=== PATIENT | female | born 1955 | race Two or more races ===

== ENCOUNTER → 2017-03-29 | Outpatient (CLI) | payer OTHER ==
--- NOTE | 2017-03-29 17:32 | RADRPT ---
PROCEDURE: XR Knees. CLINICAL INDICATION: Bilateral knee pain. TECHNIQUE: Total of six views. Frontal, oblique, and lateral views of both knees. COMPARISON: No prior study is available for comparison. FINDINGS: There is no fracture or dislocation. The soft tissues are normal. There are degenerative changes of the right knee with medial joint compartment narrowing, subarticul ar sclerosis, subarticular cysts, and deformity. There are degenerative changes of the left knee with medial joint compartment narrowing and subartic ular sclerosis. There is no radiopaque foreign body. IMPRESSION: 1. Severe degenerative changes of the right knee. 2. Moderate degenerative changes of the left knee. 3. Otherwise unremarkable study. RPTAT: QQ .Rafa Franz MD, MD Date Time Electronically viewed and signed by .Rafa Franz MD, on 03/29/2017 17:32 .R/
--- NOTE | 2017-03-30 06:33 | HKNOTE ---
DATE OF SERVICE: 03/29/2017 REFERRING PHYSICIAN: Dr. Wyatt, [address] [facility], [place] [address]. MAIN COMPLAINT: Pain in both knees, worse on the right side. HISTORY OF MAIN COMPLAINT: Patient is a 62-year-old female, who complains of pain in her right knee, which has been present for several years. The left knee pain started after a fall 1 year ago after falling on a slippery floor. She has undergone arthroscopic surgery to the left knee several years ago. This helped somewhat. She has also had 2 cortisone injections into each knee with fairly good pain relief except for the last injection in each case. The right knee pain is described as severe and is aggravated by walking, weightbearing and stair climbing. She takes ibuprofen 800 mg every 4 hours. She does get rest pain. She has no history of problems with her lower back. She gets numbness in the right leg. She uses a cane to get around. She can barely go from her bed to the kitchen and back to the bathroom. She gets pain every step that she takes. The knee swells, it is not unstable. Patient has had 2 injections into the left knee in the past and about 5 injections into the right knee in the past. The last injection gave her very minimal relief. Patient has had 2 injections into the left knee in the past and about 5 injections into the right knee in the past. The last injection gave her very minimal relief. Patient has had 2 injections into the left knee in the past and about 5 injections into the right knee in the past. The last injection gave her very minimal relief. PRIOR CORTISONE INTAKE: As above. ALCOHOL INTAKE: None. OTHER JOINT PROBLEMS: The patient gets pain in the left knee. BLOOD TESTS FOR ARTHRITIS: Patient has had blood tests for arthritis. She does not know the result. PRIOR INJURIES TO HIPS AND KNEES: The patient tripped and injured her right knee 8 years ago. WORK STATUS: The patient is retired. PAST MEDICAL HISTORY: Hypertension. PAST SURGICAL HISTORY: Gallstones removed 2 years ago, right knee surgery 2 years ago. DRUG ALLERGIES: Lisinopril. FAMILY HISTORY: Father at 84 of diabetes and a stroke. Mother at 84. SYSTEMS REVIEW: Excess urination, night urination, hypertension; otherwise, negative. HABITS: The patient does not smoke or drink alcoholic beverages. YOUTH MINISTER: Dr. Kaitlin Ricks, [address] [facility], [place] [address]. PHYSICAL EXAMINATION: GENERAL: The patient is a rather healthy-looking 62-year-old female, she comes in with her daughter. They both speak fairly good Yemeni, but the daughter translates for her any way. VITAL SIGNS: Height 5 foot 2. Weight 215 pounds. Blood pressure 140/65, temperature 98.3. GAIT: Patient's gait is quite markedly antalgic. She walks with a cane. HIPS: Both hips have a full range of motion without pain. KNEES: Examination of the right knee: Alignment is varus. Extension is full. Flexion is to 110 degrees. 6+ crepitus in the knee and under patella. Examination of the left knee: Alignment is varus. Extension is full. Flexion is to 120 degrees. There was 4+ crepitus in and the patella. Pain on forced flexion. IMAGING: Plain x-rays of the right knee obtained at the [facility] show [id number] medial compartment arthritis with intraosseous cysts in the distal femur, subchondral sclerosis, osteophyte formation. Marked pain on attempt to put the knee through range of motion. X-rays of the left knee obtained today were reviewed. These show similar changes as to the right knee but there is no total bone- on-bone loss of the lateral joint space. There are large cysts in the distal femur in the medial femoral condyle. DIAGNOSES: 1. Severe degenerative osteoarthritis of the right knee. 2. Cysts in the distal femur, which are unexplainable, that may compromise the structure of the knee replacement operation. 3. Imaging of the left knee obtained today also shows almost gjte-kg-qrma contact medially but there are no other secondary changes of osteoarthritis or rheumatoid arthritis. 4. Mild degenerative osteoarthritis of the left knee. 5. Hypertension. MANAGEMENT: Patient is advised that she will need to have a right knee replacement sometime in the near future. The surgery and some of the major complications were discussed with her through her daughter in a fair amount of detail. She was given a copy of my booklet on knee arthritis and knee replacement surgery. She will be called after I see the CAT of her distal femur, and she is anxious to proceed with knee replacement surgery as soon as authorization can be received. Dictated By: Bruno Kuhn MD /joaquim/sergio /Document#: [id number]
== END | disposition home or self-care (01) ==
LOC: HKI 14:24
DX: M17.0 Bilateral primary osteoarthritis of knee (principal); I10 Essential (primary) hypertension
CPT/HCPCS: 73562; Z7500; G0463

== ENCOUNTER → 2017-05-30 | Outpatient (CLI) | payer OTHER ==
--- NOTE | 2017-05-31 07:32 | HKNOTE ---
DATE OF SERVICE: 05/30/2017 CHIEF COMPLAINT: Right knee pain. HISTORY OF PRESENT ILLNESS: This is a 62-year-old female complaining of chronic right knee pain simon t has been worsening. She uses a cane for ambulation. She has pain with rest and walking. The georgina n is constant and rated a 10/10. There are no alleviating factors. It is aggravated by standing an d walking. She denies any history of trauma. She denies any back or groin pain. The pain is on th e inside and outside of her knee. She denies any locking or catching. GAIT: Antalgic gait with the use of assistive device. RIGHT KNEE EXAM: Neutral alignment. 0 to 110 degrees of flexion. Stable to varus valgus stress. Negative Mack's. Negative Jorge. Negative anterior drawer. Negative posterior drawer. MOTOR STRENGTH: 5/5 in hamstrings, quadriceps, gastroc soleus, peroneals. DIAGNOSTIC DATA: X-rays of right knee, 3 views: There is advanced degenerative changes of the righ t knee with bywj-xa-ffxo arthritic changes of the medial compartment. There are marginal osteophyte s and subchondral sclerosis. There is also cyst in the distal femur. CT right lower extremity: There are degenerative changes of the right knee. There are 2 large cyst s in the medial femoral and the medial distal femur. There are marginal osteophytes. IMPRESSION: A 62-year-old female with endstage osteoarthritis of the right knee who has failed nono perative management. PLAN: We will request authorization for right total knee arthroplasty. I discussed the risks assoc iated with surgery which include but are not limited to infection, deep venous thrombosis, pulmonary embolism, damage to neurovascular structures, loosening of the prosthesis, need for revisional surg bee, wear of prosthesis, heart attack, stroke, need for blood transfusion and even . The patie nt would like to proceed with surgery. She will require preoperative clearance. All questions were answered to her satisfaction. Dictated By: JUAN ELAINE/ISAAC Conf#: [id number] DID#: [id number]
== END | disposition home or self-care (01) ==
LOC: HKI 14:17
PROVIDERS: ATTEND Orthopaedic Surgery Adult Reconstructive Orthopaedic Surgery
DX: M17.11 Unilateral primary osteoarthritis, right knee (principal); M85.651 Other cyst of bone, right thigh
CPT/HCPCS: G0463

== ENCOUNTER → 2017-07-17 | Outpatient (CLI) | payer OTHER ==
[~2017-07-17] MED LIST: ACET1TAB40 PO; ASPI-664 PO; CALC600T24 PO; DICL75TA2 PO; HYDR25TA6 PO; OMEP20CA16 PO; TIZA4TAB PO
--- NOTE | 2017-07-17 15:54 | HKNOTE ---
DATE OF SERVICE: 07/17/2017 Ms. Munroe returned today for her preoperative evaluation. I discussed the risks associated with surgery, which include but are not limited to infection, deep venous thrombosis, pulmonary embolism , damage to nerves and blood vessels requiring repair and impairing function, need for revision surg bee, wear of prosthesis, loosening of prosthesis, heart attack, stroke, risks associated with anesth esia and even . All questions were answered to her satisfaction. Informed consent was obtaine d. She is scheduled for a right total knee arthroplasty at [facility] on 07/18/20 17. Dictated By: JUAN CH MD SS/NTS Conf#: [id number] DID#: [id number]
== END | disposition home or self-care (01) ==
LOC: HKI 09:24
PROVIDERS: ATTEND Orthopaedic Surgery Adult Reconstructive Orthopaedic Surgery
DX: Z01.818 Encounter for other preprocedural examination (principal)
CPT/HCPCS: G0463

== ENCOUNTER 2017-07-18 07:43 | Inpatient (IN) | payer OTHER ==
[2017-07-18] VITALS (23 sets, daily range): BP systolic 122–164; BP diastolic 52–71; PULSE 68–114; RESP 12–32; Ht 157.5 cm; Wt 98.6 kg
[~2017-07-18] VITALS: Ht 157.5 cm; Wt 98.6 kg
[~2017-07-18 07:43] MED LIST changes: -ACET1TAB40 PO; -ASPI-664 PO; -CALC600T24 PO; -DICL75TA2 PO; -HYDR25TA6 PO; -OMEP20CA16 PO; +SOD CHLORIDE 0.9% IV ONE; -TIZA4TAB PO; +TRANEXAMIC ACID IV ONE
[2017-07-18] MEDS ORDERED: DEXAMETHASONE 4 MG/ML 1 ML INJ IV ONE (08:00)
[2017-07-18] MEDS ORDERED: CELECOXIB 200 MG CAP PO ONE (08:00)
[2017-07-18] MEDS ORDERED: LANSOPRAZOLE 30 MG CAP PO ONE (08:00)
[2017-07-18] MEDS ORDERED: oxyCODONE (CR) 10 MG TAB [oxyCONTIN] PO ONE (08:00)
[2017-07-18] MEDS ORDERED: ONDANSETRON 4 MG INJ IV ONE (08:00)
[2017-07-18] MEDS ORDERED: OMEP20CA16 PO (08:03)
[2017-07-18] MEDS ORDERED: ACET1TAB40 PO (08:04)
[2017-07-18] MEDS ORDERED: CALC600T24 PO (08:05)
[2017-07-18] MEDS ORDERED: TIZA4TAB PO (08:06)
[2017-07-18] MEDS ORDERED: HYDR25TA6 PO (08:06)
[2017-07-18] MEDS ORDERED: ASPI-664 PO (08:07)
[2017-07-18] MEDS ORDERED: DICL75TA2 PO (08:07)
[2017-07-18] MEDS ORDERED: CEFAZOLIN 1 GM INJ ONE (08:35)
[2017-07-18] MEDS ORDERED: ROCURONIUM 50 MG INJ ONE (08:35)
[2017-07-18] MEDS ORDERED: NEOSTIGMINE 3 MG/3 ML SYRINGE ONE (08:35)
[2017-07-18] MEDS ORDERED: GLYCOPYRROLATE 0.4 MG INJ ONE (08:35)
[2017-07-18] MEDS ORDERED: PROPOFOL 100 ML ONE (08:36)
[2017-07-18] MEDS ORDERED: DEXAMETHASONE 4 MG/ML 1 ML INJ ONE (08:36)
[2017-07-18] MEDS ORDERED: FENTAnyl 50 MCG/ML VIAL ONE (08:36)
[2017-07-18] MEDS ORDERED: ONDANSETRON 4 MG INJ ONE (08:36)
[2017-07-18] MEDS ORDERED: ETOMIDATE 20 MG INJ ONE (08:36)
[2017-07-18] MEDS ORDERED: MIDAZOLAM 1 MG/ML 2 ML INJ ONE (08:36)
[2017-07-18] MEDS ORDERED: morphine SULFATE/PF (10 MG/10 ML) INJ ONE (08:36)
[2017-07-18] MEDS ORDERED: ACETAMINOPHEN 1000MG/100ML IV 100 ML IVPB SCH (09:00)
[2017-07-18] MEDS ORDERED: CEFAZOLIN SODIUM 2GM/D5W 50 X1 IVPB ONE (09:00)
[2017-07-18] MEDS ORDERED: SOD CHLORIDE 0.9% IV ONE (09:00)
[2017-07-18] MEDS ORDERED: TRANEXAMIC ACID IV ONE (09:00)
--- NOTE | 2017-07-18 10:11 | HPN ---
Date/Time of Note Date/Time of Note DATE: 07/18/17 TIME: 10:10 Interval H&P Admission Note Pt. seen H&P reviewed: No system changes CON TRINH PA-C Jul 18, 2017 10:10
[2017-07-18] MEDS ORDERED: BACITRACIN 50000 UNITS INJ ONE ×2 (11:30→11:43)
[2017-07-18] MEDS ORDERED: POLYMYXIN/BACITRACIN 1L IRRIG ONE (11:41)
[2017-07-18] MEDS ORDERED: POLYMYXIN B 500000 UNIT INJ ONE (11:41)
[2017-07-18] MEDS ORDERED: NALBUPHINE HCL (10 MG/1 ML) INJ IV PRN (12:00)
[2017-07-18] MEDS ORDERED: MIDAZOLAM 1 MG/ML 2 ML INJ IV PRN (12:00)
[2017-07-18] MEDS ORDERED: TRIMETHOBENZAMIDE 100 MG/ML VIAL IM PRN (12:00)
[2017-07-18] MEDS ORDERED: EPHEDrine SULFATE 50 MG/5 ML SYG IV PRN (12:00)
[2017-07-18] MEDS ORDERED: hydrALAzine 20 MG INJ IV PRN (12:00)
[2017-07-18] MEDS: traMADol 50 MG TAB PO SCH ×3 (12:00→23:30)
[2017-07-18] MEDS ORDERED: ALBUTEROL 0.083% (NEB) 2.5 MG/3 ML AMP HHN PRN (12:00)
[2017-07-18] MEDS ORDERED: FENTAnyl 50 MCG/ML VIAL IV PRN ×3 (12:00)
[2017-07-18] MEDS ORDERED: HYDROmorphONE (0.2 MG/ML) 10ML SYG IV PRN ×3 (12:00)
[2017-07-18] MEDS ORDERED: IPRATROPIUM (NEB) 0.5 MG/2.5 ML AMP HHN PRN (12:00)
[2017-07-18] MEDS ORDERED: ZOLPIDEM 5 MG TAB PO PRN (12:00)
[2017-07-18] MEDS ORDERED: morphine 2 MG INJ IV PRN (12:00)
[2017-07-18] MEDS ORDERED: NALOXONE (0.4 MG/ML) INJ IV PRN (12:00)
[2017-07-18] MEDS ORDERED: morphine 4 MG/ML VIAL IV PRN (12:00)
[2017-07-18] MEDS ORDERED: OXYCODONE/ACETAMINOPHEN (5/325) TAB PO PRN ×2 (12:00)
[2017-07-18] MEDS ORDERED: ONDANSETRON 4 MG INJ IV PRN (12:00)
[2017-07-18] MEDS ORDERED: LABETALOL HCL 20MG INJ IV PRN (12:00)
[2017-07-18] MEDS ORDERED: MEPERIDINE 25 MG INJ IV PRN (12:00)
[2017-07-18] MEDS ORDERED: DIPHENHYDRAMINE 50 MG INJ IV PRN ×2 (12:00)
[2017-07-18] MEDS ORDERED: ROPIVACAINE 0.5 % 30 ML VIAL ONE (12:14)
[2017-07-18] MEDS ORDERED: PHENYLephrine (100 MCG/ML) 5ML SYG ONE (12:53)
[2017-07-18] MEDS ORDERED: ROPIVACAINE 0.2% 60 ML, morphine SULFATE (PF) 4 MG, CLONIDINE 100 MCG, EPINEPHrine 0.3 MG INJ SCH ×7 (13:00)
--- NOTE | 2017-07-18 13:17 | SIPON ---
Date/Time of Note Date/Time of Note DATE: 07/18/17 TIME: 13:13 Operative Report Preoperative Diagnosis Right knee osteoarthritis Postoperative Diagnosis same Operation/Procedure Performed Right total knee arthroplasty Surgeon MD Daniel tutoring assistant Evin Durand Second assist: CON TRINH PA-C Anesthesia: spinal Estimated blood loss: 150 - 200 ml's Transfusion Required none Specimen resected bone Grafts/Implants Peña Nephew Melissa II Size 4 Tibia, Size 5N femoral component, 32mm patella, 9mm poly Complications none JUAN CH MD Jul 18, 2017 13:17
--- NOTE | 2017-07-18 13:33 | PDOCDIS ---
Discharge Instructions DIAGNOSIS Discharge Diagnosis Status post right total knee arthroplasty CONDITION Patient Condition: Good HOME CARE INSTRUCTIONS: Diet Instructions: Regular ACTIVITY: Activity Restrictions: Slowly Increase Activity Rest between Activity Avoid heavy lifting No Sexual Activity Do not Drive Do not operate Machinery Do not operate Power Tool Avoid Heavy Housework Keep Limb Elevated (2-3 pillows under the foot/ankle only) Weight Bearing (As tolerated with front wheeled walker) FOLLOW UP/APPOINTMENTS Follow-up Plan Follow-up at postoperative appointment provided to you at your preoperative visit. CON TRINH PA-C Jul 18, 2017 13:33
[2017-07-18] MEDS: CEFAZOLIN 1 GM/50 ML (PMX) 50 ML IVPB SCH ×2 (14:42→20:46)
[2017-07-18] MEDS: KETOROLAC 30 MG INJ IV SCH ×2 (14:51→20:46)
--- NOTE | 2017-07-18 14:57 | RADRPT ---
PROCEDURE: CR Right Knee CLINICAL INDICATION: Postop TECHNIQUE: AP and lateral views were submitted. COMPARISON: 03/29/2017 FINDINGS: Osseous Structures: Since the previous study, the patient has undergone a total right knee replaceme nt and the components appear well seated. The osseous elements are otherwise intact. Join Spaces: Intra-articular fluid in air is identified. Soft Tissues: Subcutaneous air is noted and a few small calcifications are seen in the ventral soft tissues. IMPRESSION: 1. There is now a well seated total right knee replacement. 2. Expected postoperative changes are noted Physician Meir Date Time Electronically viewed and signed by Physician Meir on 07/18/2017 14:57 /
[2017-07-18] MEDS: ONDANSETRON 4 MG INJ IV PRN (16:40)
[2017-07-18] MEDS ORDERED: ONDANSETRON 4 MG INJ IV STA (18:00)
[2017-07-18] MEDS: DOCUSATE SODIUM 100 MG CAP PO SCH (20:47)
[2017-07-19 02:57] VITALS: BP 164/74; RESP 18
[2017-07-19] MEDS: traMADol 50 MG TAB PO SCH ×4 (05:14→23:57)
[2017-07-19] MEDS: KETOROLAC 30 MG INJ IV SCH (05:18)
[2017-07-19] MEDS: CEFAZOLIN 1 GM/50 ML (PMX) 50 ML IVPB SCH (05:18)
[2017-07-19 05:46] LABS: BASOPHILS % 0.1 % (0.0-2.0); HEMATOCRIT 35.2 % (37.0-47.0); HEMOGLOBIN 12.2 g/dl (12.0-16.0); LYMPHOCYTES # 0.9 10^3/ul (0.8-2.9); MEAN CORPUSCULAR HEMOGLOBIN 30.7 pg (29.0-33.0); MEAN CORPUSCULAR HGB CONC 34.7 g/dl (32.0-37.0); MEAN CORPUSCULAR VOLUME 88.7 fl (82.0-101.0); MEAN PLATELET VOLUME 10.6 fl (7.4-10.4); MONOCYTE # 0.6 10^3/ul (0.3-0.9); MONOCYTES % 5.2 % (0.0-11.0); NEUTROPHIL # 9.8 10^3/ul (1.6-7.5); NEUTROPHILS % 86.2 % (39.0-77.0); PLATELET COUNT 231 10^3/UL (140-415); RED BLOOD COUNT 3.97 10^6/ul (4.20-5.40); RED CELL DISTRIBUTION WIDTH 11.4 % (11.5-14.5); WHITE BLOOD COUNT 11.4 10^3/ul (4.8-10.8)
[2017-07-19 06:17] LABS: CALCIUM 9.4 mg/dl (8.4-10.2); CREATININE 0.68 mg/dl (0.44-1.00); POTASSIUM 4.1 mmol/L (3.5-5.1)
--- NOTE | 2017-07-19 06:42 | OPR ---
Date/Time of Note Date/Time of Note DATE: 07/19/17 TIME: 06:37 Operative Report Procedure Date: Jul 18, 2017 Preoperative Diagnosis Right Knee Osteoarthritis Postoperative Diagnosis Same Operation/Procedure Performed 1. Right total knee arthroplasty, CPT code 75959. 2. Computer assisted surgical navigational procedure for total knee, CPT code 38220. Surgeon Juan Ch MD Commercial Teller Evin Gustafson Commercial Teller: CON TRINH PA-C Anesthesia Type: spinal Anesthesiologist: Conor Britt M.D. Tourniquet Time: 66 mins at 250mmHg Estimated Blood Loss: 150 - 200 ml's Transfusion none Specimen Bone Grafts/Implants Peña Nephew Melissa II Size 4 Tibia, Legion Size 5N femoral component, 32mm patella, 9mm posterior stabilized poly Complications none Pt Condition Post Procedure: stable Disposition: PACU Procedure Description TOURNIQUET TIME: 58 minutes at 250 mmHg. INDICATION FOR PROCEDURE: This is a 62-year-old female with endstage osteoarthritis of the right knee who had failed nonoperative management. Risks , benefits, alternatives of surgical intervention were discussed with the patient and informed consent was obtained. The risks of surgery include but are not limited to infection, deep venous thrombosis, pulmonary embolism, damage to neurovascular structures, wound healing problems, loosening of prosthesis, where of prosthesis, need for revision surgery, stiffness, need for blood transfusion, heart attack, stroke, risks associated with anesthesia and even . DETAILS OF PROCEDURE: The patient was met in the preoperative suite. The correct operative site was confirmed and marked. She was then brought into operating room. After induction of spinal anesthesia, she was placed in the supine position on the operating room table. A tourniquet was applied to the right upper thigh. The right lower extremity was prepped and draped in the usual sterile fashion. Before starting, a timeout was taken to identify the correct operative site and confirm that preoperative antibiotics consisting of 1 gram of IV Ancef along with 1 gram of tranexamic acid were administered. At this point, the right leg was then elevated and exsanguinated and the tourniquet was then insufflated for the above-noted time. A midline incision was made and a median parapatellar arthrotomy was then completed. The lateral patellar retinacular ligaments were released and the patella was retracted laterally. The sleeve of tissue was released from the proximal medial tibia. The cruciate and the menisci were excised along with the suprapatellar fat pad. The intramedullary hole was drilled into the femur and the femoral felisha was attached to the anterior cutting block set at 5 degrees of valgus. The block was then pinned into position and the distal femoral cut was then made, taking 9.5 mm of distal femur. All the osteophytes were removed. The femur was sized to a size 5. The 4-in-1 cutting block was pinned and the anterior posterior condylar cuts followed by the anterior and posterior chamfer cuts were then completed. At this point, the tibia was subluxed anteriorly. With the use of the navigation, [employer], the slope was set at 4 degrees with 0 degrees of varus and valgus, 2 mm was resected off the medial tibial plateau and 8 mm off the lateral tibial plateau. The gap cylinder checker was used and noted to have equal extension and flexion gaps. The tibia was then subluxed anteriorly and sized to a size 4. The tibial tray was then pinned and the keel was punched. Next, the femoral component was placed and the femoral box cut was then completed. At this point, the patella was sized to 22 mm and 8 mm was resected. The patella was sized to 32 mm. The holes for the patellar button were placed, the trial insert and components were placed using a 9 mm insert. The leg was noted to be in full extension and greater than 120 degrees of flexion. The knee was stable to varus valgus stress with excellent patellar tracking. Trial components were removed. All bony surfaces were pulse lavaged and dried. The appropriate size components were brought into the field and cemented with the removal of excess cement. The knee was held in extension until the cement had cured. At this point, the tourniquet was deflated. The tranexamic acid and antibiotics were redosed. Once the cement had cured the trial polyethylene was removed and the appropriate size 9 mm posterior stabilized polyethylene was placed. Hemostasis was obtained. Arthrotomy was closed using a #1 Vicryl in interrupted [id number]-kr-[id number] fashion followed by closure of subcutaneous tissue with 2-0 Vicryl and the skin with 3-0 Monocryl in subcuticular fashion. Steri- Strips and sterile dressing was applied followed by a cold pack and Zachary wrap. The patient was awakened and taken to postoperative care unit in stable condition. POSTOPERATIVE CARE: She will be weightbearing as tolerated. She will work with physical therapy. She will receive 2 additional doses of IV Ancef along with aspirin 325 mg p.o. b.i.d. for 6 weeks. Upon discharge, she will follow up at the [facility] within 2 weeks postoperatively. JUAN CH MD Jul 19, 2017 06:42
[2017-07-19 07:49] VITALS: BP 137/65; RESP 20
[2017-07-19] MEDS: ASPIRIN (EC) 325 MG TAB PO SCH ×2 (09:14→21:17)
[2017-07-19] MEDS: DOCUSATE SODIUM 100 MG CAP PO SCH ×2 (09:14→21:18)
--- NOTE | 2017-07-19 11:01 | PN ---
Date/Time of Note Date/Time of Note DATE: 07/19/17 TIME: 11:00 Assessment/Plan VTE Prophylaxis VTE Prophylaxis Intervention: ambulation, SCD's, other (Aspirin 325 mg) Lines/Catheters IV Catheter Type (from Nrsg): Peripheral IV Maldonado in Place (from Nrsg): Yes Assessment/Plan Assessment/Plan -Pain Meds as needed -Dressing is clean and intact. -OOB with PT -ASA/SCDs for DVT Prophylaxis -Continue monitoring with Internal Medicine -Patient Stable. Expected to be discharged home tomorrow. Subjective 24 Hr Interval Summary 62-year-old female postop day 1 status post right total knee arthroplasty. No physical therapy performed yesterday as patient had multiple episodes of vomiting. Vomiting stopped around 2 in the morning. Denies any GI pain, nausea or vomiting. Resting comfortably in bed now. Denies any chest pain/ tightness, shortness of breath or calf pain. Constitutional: no complaints Pain Control: well controlled Exam/Review of Systems Vital Signs Vitals Vital Signs Date Time Temp Pulse Resp B/P Pulse Ox O2 Delivery O2 Flow Rate FiO2 07/19/17 07:49 97.4 72 20 137/65 96 07/18/17 19:26 Room Air Intake and Output 07/18/17 07/18/17 07/19/17 15:00 23:00 07:00 Intake Total 3000 ml 200 ml 550 ml Output Total 800 ml 1100 ml Balance 2200 ml 200 ml -550 ml Exam Free Text/Dictation -No complications with dressing intact. -5/5 Tibialis Anterior, EHL Gastrocnemius/Soleus and Peroneals -Normal Sensation -Palpable DP/PT, Capillary Refill <2 secs -No Distal Edema -Negative Pablo Sign/No calf pain -Toes Freely Movable Constitutional: alert, oriented, well developed Results Result Diagram: 07/19/17 0439 07/19/17 0439 CON TRINH PA-C Jul 19, 2017 11:01
--- NOTE | 2017-07-19 14:10 | CONS ---
Date/Time of Note Date/Time of Note DATE: 07/19/17 TIME: 14:10 Assessment/Plan Assessment/Plan Chief Complaint/Hosp Course 62 yo F with PMH HTN and GERD is POD #1 after total right knee replacement Problems: Additional Assessment/Plan 1. Hypertension - Patient currently on Hctz at home and tolerates well - Will continue BP medications and monitor - Adjust as needed but BP currently stable 2. GERD - Continue on PPI 3. s/p R TKR - management per primary team Thanks you for allowing me to participate in the care of this patient. If any questions feel free to call. Consultation Date/Type/Reason Admit Date/Time Jul 18, 2017 at 07:43 Date of Consultation: Jul 19, 2017 Reason for Consultation medical management Hx of Present Illness 62 yo F with PMH hypertension and GERD was admitted following right total knee arthroplasty and is currently POD #1. Patient states knee pain is 8/10 and has appropriate pain control. Patient states she takes all medications as prescribed and denies any other medical issues. Denies chest pain, shortness of breath, nausea, vomiting, abdominal issues, neuropathy, or LOC. All 12 systems reviewed and pertinent positives as per HPI. all others reviewed and negative. Constitutional: No chills, No diaphoresis, No febrile Eyes: no complaints ENT: no complaints Respiratory: No cough, No shortness of breath, No sputum, No wheezing Cardiovascular: No chest pain, No lightheadedness, No palpitations Gastrointestinal: No constipation, No diarrhea, No nausea, No vomiting Genitourinary: No flank pain Musculoskeletal: bone/joint pain Skin: No pruritis, No rash Neurologic: no complaints Endocrine: no complaints Lymphatic: no complaints Psychological: nl mood/affect, no complaints Immunologic: no complaints Past Medical History Medical History: GERD, hypertension Past Surgical History Past Surgical Hx: cholecystectomy, other (arthroscopy right knee) Family History Significant Family History: no pertinent family hx Social History Alcohol Use: none Smoking Status: Never smoker Drug Use: none Exam/Review of Systems Vital Signs Vitals Vital Signs Date Time Temp Pulse Resp B/P Pulse Ox O2 Delivery O2 Flow Rate FiO2 07/19/17 07:49 97.4 72 20 137/65 96 07/18/17 19:26 Room Air Intake and Output 07/18/17 07/18/17 07/19/17 15:00 23:00 07:00 Intake Total 3000 ml 200 ml 550 ml Output Total 800 ml 1100 ml Balance 2200 ml 200 ml -550 ml Exam Constitutional: alert, oriented, well developed, No distress Psych: nl mood/affect Head: atraumatic, normocephalic Eyes: EOMI, PERRL, nl sclera Neck: non-tender, supple Respiratory: clear to auscultation, No crackles/rales, No diminished breath sounds, No wheezing Cardiovascular: regular rate and rhythm, No edema, No murmurs/extra sounds, No systolic murmur Gastrointestinal: bowel sounds, non-tender, soft, No distended, No rebound or guarding Genitourinary - Female: No CVA tenderness Musculoskeletal: joint tenderness Extremities: No cyanosis, No edema, No pitting pedal edema Neurological: GLOBE CHANGER II-XII intact, nl mental status, nl speech Skin: nl turgor Lymph: nl lymph nodes Results Result Diagram: 07/19/17 0439 07/19/17 0439 Results 24 hrs Laboratory Tests Test 07/19/17 04:39 White Blood Count 11.4 H Red Blood Count 3.97 L Hemoglobin 12.2 Hematocrit 35.2 L Mean Corpuscular Volume 88.7 Mean Corpuscular Hemoglobin 30.7 Mean Corpuscular Hemoglobin Concent 34.7 Red Cell Distribution Width 11.4 L Platelet Count 231 Mean Platelet Volume 10.6 H Neutrophils % 86.2 H Lymphocytes % 8.0 L Monocytes % 5.2 Eosinophils % 0.0 Basophils % 0.1 Nucleated Red Blood Cells % 0.0 Neutrophils # 9.8 H Lymphocytes # 0.9 Monocytes # 0.6 Eosinophils # 0.0 Basophils # 0.0 Nucleated Red Blood Cells # 0.0 Sodium Level 138 Potassium Level 4.1 Chloride Level 96 L Carbon Dioxide Level 33 H Anion Gap 13 Blood Urea Nitrogen 12 Creatinine 0.68 Glucose Level 144 Calcium Level 9.4 Medications Medications Medications reviewed Current Medications Tramadol HCl (Ultram) 50 mg Q6 PO Last administered on 07/19/17t 12:32; Admin Dose 50 MG; Start 07/18/17 at 12:00; Stop 07/21/17 at 11:59 Acetaminophen/ Hydrocodone Bitart (Stratton (5/325)) 1 tab Q4H PRN PO PAIN LEVEL 1 -3; Start 07/18/17 at 13:30 Oxycodone HCl (Roxicodone) 5 mg Q4H PRN PO PAIN LEVEL 1-3; Start 07/18/17 at 13:30 Ondansetron HCl (Zofran Inj) 4 mg Q6H PRN IV NAUSEA AND/OR VOMITING Last administered on 07/18/17 16:40; Admin Dose 4 MG; Start 07/18/17 at 13:30 Docusate Sodium (Colace) 100 mg BID PO Last administered on 07/19/17 09:14; Admin Dose 100 MG; Start 07/18/17 at 21:00 Aspirin (Ecotrin) 325 mg BID PO Last administered on 07/19/17 09:14; Admin Dose 325 MG; Start 07/19/17 at 09:00 Influenza Virus Vaccine (Fluzone) 0.5 ml ONCE ONCE IM* ; Start 07/20/17 at 09: 00; Stop 07/20/17 at 09:01 Procedures Procedures PROCEDURE: CR Right Knee CLINICAL INDICATION: Postop TECHNIQUE: AP and lateral views were submitted. COMPARISON: 03/29/2017 FINDINGS: Osseous Structures: Since the previous study, the patient has undergone a total right knee replacement and the components appear well seated. The osseous elements are otherwise intact. Join Spaces: Intra-articular fluid in air is identified. Soft Tissues: Subcutaneous air is noted and a few small calcifications are seen in the ventral soft tissues. IMPRESSION: 1. There is now a well seated total right knee replacement. 2. Expected postoperative changes are noted DELORIS MOSLEY MD Jul 19, 2017 14:10
[2017-07-19] MEDS: oxyCODONE 5 MG TAB PO PRN (14:47)
[2017-07-19] MEDS: CALCIUM CARBONATE 1.25 GM TAB PO SCH ×2 (14:50→23:15)
[2017-07-19 14:56] VITALS: BP 105/59; RESP 20
[2017-07-19 15:10] VITALS: BP 137/67; RESP 20
[2017-07-19] MEDS: HYDROCODONE/APAP (5/325) TAB PO PRN ×2 (16:41→21:18)
[2017-07-19 20:00] VITALS: BP 150/67; RESP 18
[2017-07-20 02:00] VITALS: BP 177/73; RESP 19
[2017-07-20 02:30] VITALS: BP 177/73; PULSE 81
[2017-07-20] MEDS ORDERED: HYDROCHLOROTHIAZIDE 25 MG TAB PO SCH ×2 (02:30→09:00)
[2017-07-20] MEDS: oxyCODONE 5 MG TAB PO PRN (02:34)
[2017-07-20 05:18] LABS: BASOPHILS % 0.2 % (0.0-2.0); EOSINOPHILS % 0.5 % (0.0-7.0); HEMATOCRIT 34.3 % (37.0-47.0); HEMOGLOBIN 11.6 g/dl (12.0-16.0); LYMPHOCYTES # 1.7 10^3/ul (0.8-2.9); LYMPHOCYTES % 19.8 % (15.0-51.0); MEAN CORPUSCULAR HEMOGLOBIN 30.4 pg (29.0-33.0); MEAN CORPUSCULAR HGB CONC 33.8 g/dl (32.0-37.0); MEAN CORPUSCULAR VOLUME 89.8 fl (82.0-101.0); MEAN PLATELET VOLUME 10.6 fl (7.4-10.4); MONOCYTES % 10.9 % (0.0-11.0); PLATELET COUNT 237 10^3/UL (140-415); RED BLOOD COUNT 3.82 10^6/ul (4.20-5.40); RED CELL DISTRIBUTION WIDTH 11.5 % (11.5-14.5); WHITE BLOOD COUNT 8.8 10^3/ul (4.8-10.8)
[2017-07-20 05:43] LABS: CREATININE 0.81 mg/dl (0.44-1.00); POTASSIUM 4.9 mmol/L (3.5-5.1)
[2017-07-20] MEDS: traMADol 50 MG TAB PO SCH ×3 (05:43→18:00)
[2017-07-20] MEDS ORDERED: PANTOPRAZOLE (EC) 40 MG TAB PO SCH (06:00)
[2017-07-20 07:46] VITALS: BP 159/70; PULSE 79; RESP 16
[2017-07-20 07:47] VITALS: BP 186/84
[2017-07-20] MEDS: HYDROCODONE/APAP (5/325) TAB PO PRN ×2 (07:57→18:28)
--- NOTE | 2017-07-20 07:59 | PN ---
Date/Time of Note Date/Time of Note DATE: 07/20/17 TIME: 07:57 Assessment/Plan VTE Prophylaxis VTE Prophylaxis Intervention: ambulation, SCD's, other (Aspirin 325 mg) Lines/Catheters IV Catheter Type (from Nrsg): Saline Lock Maldonado in Place (from Nrsg): No Assessment/Plan Assessment/Plan -Pain Meds as needed -ASA for DVT Prophylaxis x 6 weeks outpatient discussed. -Continue monitoring as outpatient on discharge -Follow-up at scheduled postop outpatient appointment or sooner if there is any issue. -Venous Doppler will be ordered today. If negative, patient may continue with discharge home with home health. -Patient Stable -Discharge to Home with home health Subjective 24 Hr Interval Summary 62-year-old female postop day 2 status post right total knee arthroplasty. Patient has initiated physical therapy and has been up and walking with physical therapy. Patient was having acute pain to the posterior knee. Patient denies pain being associated with surgery as she has had a similar pain on the contralateral side. Pain is sharp in nature. Denies any chest pain/ tightness or shortness of breath. Denies any acute overnight events. Exam/Review of Systems Vital Signs Vitals Vital Signs Date Time Temp Pulse Resp B/P Pulse Ox O2 Delivery O2 Flow Rate FiO2 07/20/17 07:47 186/84 07/20/17 07:46 98.0 79 16 92 07/18/17 19:26 Room Air Intake and Output 07/19/17 07/19/17 07/20/17 15:00 23:00 07:00 Intake Total 1250 ml 90 ml Balance 1250 ml 90 ml Exam Free Text/Dictation -No complications with dressing intact. Upon removal of dressing, wound is clean dry and intact. -5/5 Tibialis Anterior, EHL Gastrocnemius/Soleus and Peroneals -Normal Sensation -Palpable DP/PT, Capillary Refill <2 secs -No Distal Edema -Negative Pablo Sign/No calf pain -Toes Freely Movable Constitutional: alert, oriented, well developed Results Result Diagram: 07/20/17 0418 07/20/17 0418 CON TRINH PA-C Jul 20, 2017 07:59
[2017-07-20] MEDS ORDERED: INFLUENZA VIRUS VACCINE 0.5 ML (DISPENSING) IM* ONE (09:00)
[2017-07-20] MEDS: CALCIUM CARBONATE 1.25 GM TAB PO SCH (09:05)
[2017-07-20] MEDS: DOCUSATE SODIUM 100 MG CAP PO SCH (09:05)
[2017-07-20] MEDS: ASPIRIN (EC) 325 MG TAB PO SCH (09:05)
--- NOTE | 2017-07-20 12:08 | RADRPT ---
PROCEDURE: US right lower extremity venous CLINICAL INDICATION: Right total knee replacement TECHNIQUE: Multiple longitudinal and transverse images of the right lower extremity veins were obta ined with waller scale and color Doppler imaging. 2D grayscale measurements with compression, color D oppler flow, and augmentation was performed. The calf veins were interrogated as well. COMPARISON: None available FINDINGS: The right common femoral, femoral, and popliteal veins are patent and without evidence of filling de fects. All these veins have normal spectral wave forms, fill with color signal, are compressible, a nd have augmentation of blood flow with compression. The visualized right upper calf veins (posterior tibial and peroneal) are patent and without evidenc e of filling defects; these veins fill with color signal and are compressible. Sonographic evaluation of the right calf area where the patient complains of pain reveals no sonogra phic abnormality. IMPRESSION: 1. No evidence of deep vein thrombosis involving the right lower extremity RPTAT: TT Physician Loulou Date Time Electronically viewed and signed by Physician Loulou on 07/20/2017 12:07 MAYNOR/
--- NOTE | 2017-07-20 12:19 | CONS ---
Date/Time of Note Date/Time of Note DATE: 07/20/17 TIME: 12:19 Assessment/Plan Assessment/Plan Chief Complaint/Hosp Course 62 yo F with PMH HTN and GERD is POD #1 after total right knee replacement Problems: Additional Assessment/Plan 1. Hypertension- stable - Patient currently on Hctz at home and tolerates well - Will continue BP medications and monitor - Adjust as needed but BP currently stable 2. GERD - Continue on PPI 3. s/p R TKR - management per primary team 4. Right calf cramping - Doppler negative for DVT and pulses intact - electrolytes within normal limits - patient has had left calf cramping for years Thanks you for allowing me to participate in the care of this patient. If any questions feel free to call. Consultation Date/Type/Reason Admit Date/Time Jul 18, 2017 at 07:43 Initial Consult Date 07/19/17 Reason for Consultation medication management Exam/Review of Systems Vital Signs Vitals Vital Signs Date Time Temp Pulse Resp B/P Pulse Ox O2 Delivery O2 Flow Rate FiO2 07/20/17 07:47 186/84 07/20/17 07:46 98.0 79 16 92 07/18/17 19:26 Room Air Intake and Output 07/19/17 07/19/17 07/20/17 15:00 23:00 07:00 Intake Total 1250 ml 90 ml Balance 1250 ml 90 ml Exam Constitutional: alert, oriented, well developed, No distress Eyes: EOMI, PERRL, nl sclera Neck: non-tender, supple Respiratory: clear to auscultation, No crackles/rales, No diminished breath sounds, No wheezing Cardiovascular: regular rate and rhythm, No edema, No murmurs/extra sounds, No systolic murmur Gastrointestinal: bowel sounds, non-tender, soft, No distended, No rebound or guarding Extremities: No cyanosis, No edema, No pitting pedal edema. cramping of right calf Neurological: REPORTING CONSULTANT II-XII intact, nl mental status, nl speech Results Result Diagram: 07/20/17 0418 07/20/17 0418 Results 24 hrs Laboratory Tests Test 07/20/17 04:18 White Blood Count 8.8 # Red Blood Count 3.82 L Hemoglobin 11.6 L Hematocrit 34.3 L Mean Corpuscular Volume 89.8 Mean Corpuscular Hemoglobin 30.4 Mean Corpuscular Hemoglobin Concent 33.8 Red Cell Distribution Width 11.5 Platelet Count 237 Mean Platelet Volume 10.6 H Neutrophils % 68.0 Lymphocytes % 19.8 Monocytes % 10.9 Eosinophils % 0.5 Basophils % 0.2 Nucleated Red Blood Cells % 0.0 Neutrophils # 6.0 Lymphocytes # 1.7 Monocytes # 1.0 H Eosinophils # 0.0 Basophils # 0.0 Nucleated Red Blood Cells # 0.0 Sodium Level 139 Potassium Level 4.9 Chloride Level 99 Carbon Dioxide Level 36 H Anion Gap 9 Blood Urea Nitrogen 16 Creatinine 0.81 Glucose Level 141 Calcium Level 9.0 Medications Medications Current Medications Tramadol HCl (Ultram) 50 mg Q6 PO Last administered on 07/20/17 11:54; Admin Dose 50 MG; Start 07/18/17 at 12:00; Stop 07/21/17 at 11:59 Acetaminophen/ Hydrocodone Bitart ([place] (5/325)) 1 tab Q4H PRN PO PAIN LEVEL 1 -3 Last administered on 07/20/17 07:57; Admin Dose 1 TAB; Start 07/18/17 at 13:30 Oxycodone HCl (Roxicodone) 5 mg Q4H PRN PO PAIN LEVEL 1-3 Last administered on 07/20/17 02:34; Admin Dose 5 MG; Start 07/18/17 at 13:30 Ondansetron HCl (Zofran Inj) 4 mg Q6H PRN IV NAUSEA AND/OR VOMITING Last administered on 07/18/17 16:40; Admin Dose 4 MG; Start 07/18/17 at 13:30 Docusate Sodium (Colace) 100 mg BID PO Last administered on 07/20/17 09:05; Admin Dose 100 MG; Start 07/18/17 at 21:00 Aspirin (Ecotrin) 325 mg BID PO Last administered on 07/20/17 09:05; Admin Dose 325 MG; Start 07/19/17 at 09:00 Calcium Carbonate (Oyster Shell Calcium) 1.25 gm BID PO Last administered on 09:05; Admin Dose 1.25 GM; Start 07/19/17 at 14:45 Pantoprazole (Protonix Tab) 40 mg DAILY@06 PO Last administered on 07/20/17 05:43; Admin Dose 40 MG; Start 07/20/17 at 06:00 Hydrochlorothiazide (Hydrochlorothiazide) 25 mg DAILY PO Last administered on 07/20/17t 02:34; Admin Dose 25 MG; Start 07/20/17 at 02:30 DELORIS MOSLEY MD Jul 20, 2017 12:19
[2017-07-20] MEDS ORDERED: POLYETHYLENE GLYCOL 17 GM PACKET PO SCH (12:30)
[2017-07-20] MEDS ORDERED: BISACODYL 10 MG SUPP PR ONE (15:00)
[2017-07-20] MEDS: ONDANSETRON 4 MG INJ IV PRN (15:17)
[2017-07-20 15:24] VITALS: BP 140/66; PULSE 89; RESP 20
[2017-07-20 15:32] VITALS: BP 142/79; RESP 19
--- NOTE | 2017-07-21 07:26 | DS ---
Date/Time of Note Date/Time of Note DATE: 07/21/17 TIME: 07:25 Discharge Summary Admission/Discharge Info Admit Date/Time Jul 18, 2017 at 07:43 Discharge Date/Time Jul 20, 2017 at 19:20 Discharge Diagnosis Status post right total knee arthroplasty Patient Condition: Good Hospital Course On the day of admission, the patient underwent right total knee arthroplasty Intraoperative complications: None Postoperative complications: None The patient was given prophylactic antibiotics and anticoagulants. On the day of surgery and first postoperative day patient was started on gait training and was taught usual restrictions following knee replacement On postoperative day 1 dressing was clean dry and intact. No complications were observed. On the day of discharge, the wound was clean and healing well; there was no sign of infection. Wound care instructions were discussed with the patient. Discharge Temperature: 98 Discharge White Blood Cell Count: 8.8 Discharge Hemoglobin: 11.6 The patient was discharged home with home health. Arrangements were made for visiting nurses and home health/physical therapy. The patient will be seen in office at scheduled postoperative evaluation date given on their preoperative exam. Should patient complain of any problems prior to scheduled postoperative evaluation date, they may call into outpatient clinic to determine if they need to be scheduled at sooner appointment to be seen immediately if needed. Discharge medications: As per medication reconciliation form Diet: Same as preadmission diet. This is Con Molina PA-C dictating discharge summary for Dr. Juan Olivas. Home Meds Reported Medications Diclofenac Sodium* (Diclofenac Sodium*) 75 Mg Tablet., 75 MG PO BID, #60 TAB 07/18/17 Tizanidine Hcl* (Tizanidine Hcl*) 4 Mg Tablet, 4 MG PO BID Y for SPASTICITY, TAB 07/18/17 Hydrochlorothiazide* (Hydrochlorothiazide*) 25 Mg Tab, 25 MG PO DAILY, #30 TAB 07/18/17 Calcium Carbonate* (Calcium Carbonate*) 600 MG Ca Tab, 1296 MG PO BID, TAB 07/18/17 Acetaminophen with Codeine (Acetaminophen-Cod #3 Tablet) 1 Each Tablet, 1-2 TAB PO Q6H Y for PAIN, #7 TAB 07/18/17 Omeprazole* (Omeprazole*) 20 Mg Capsule., 20 MG PO DAILY, #30 CAP 07/18/17 Discontinued Reported Medications Aspirin (Low Dose Aspirin) 81 Mg Tablet., 81 MG PO DAILY, #30 TAB 07/18/17 Follow-up Plan Follow-up at postoperative appointment provided to you at your preoperative visit. Primary Care Provider Not On Staff Doctor CON TRINH PA-C Jul 21, 2017 07:26
== END 2017-07-20 19:20 | disposition home health service (06) | DRG 470 ==
LOC: REC 07:43 → MS1 17:25
PROVIDERS: ADMIT Orthopaedic Surgery Adult Reconstructive Orthopaedic Surgery; ATTEND Orthopaedic Surgery Adult Reconstructive Orthopaedic Surgery
PROC: 0SRC0J9 Replacement of Right Knee Joint with Synthetic Substitute, Cemented, Open Approach (ICD-10-PCS; principal; 2017-07-18 13:00)
DX: M17.11 Unilateral primary osteoarthritis, right knee (principal); I10 Essential (primary) hypertension; K21.9 Gastro-esophageal reflux disease without esophagitis; R25.2 Cramp and spasm
CPT/HCPCS: 73560; 80048; 83735; 85025; 86850; 86900; 86901; 86920; 87086; 88304; 88311; 90686; 93971; 97110; 97116; 97163; 97530; J0131; J0171; J0690; J0697; J0735; J1100; J1885; J2250; J2274; J2370; J2405; J2710; J2795; J3010

== ENCOUNTER → 2017-07-31 | Outpatient (CLI) | payer OTHER ==
[~2017-07-31] MED LIST changes: +ACET1TAB40 PO; +CALC600T24 PO; +DICL75TA2 PO; +HYDR25TA6 PO; +OMEP20CA16 PO; -SOD CHLORIDE 0.9% IV ONE; +TIZA4TAB PO; -TRANEXAMIC ACID IV ONE
--- NOTE | 2017-07-31 10:39 | PN ---
Date/Time of Note Date/Time of Note DATE: 07/31/17 TIME: 10:34 Outpatient Progress Note Chief Complaint 2 weeks status post right total knee replacement. HPI 62-year-old female presents today for 2 week postop status post right total knee arthroplasty on 07/18/2017. Patient states that her pain has significantly improved status post surgery. Patient has recently initiated outpatient physical therapy. She is using front wheeled walker for assisted ambulation. Patient does state that at night she gets acute sharp spasms distal to the right knee that are self-limiting. Denies any calf pain. Denies any chest pain/tightness or shortness of breath. Review of Systems Const: No Fever, no chills, no Fatigue, normal appetite, no diaphoresis. Resp: No SOB, no wheezing, no chest pain. CV: No chest pain, no palpitaions, no KONG. Physical Exam Blood pressure is 192/76, temperature is 97.7, pulse is 83, respiratory rate is 12, height is 5 foot 2 inches, weight is 210 pounds General Appearance: well-developed, well-nourished, in no acute distress. Right knee: Wound is clean dry and intact and healing well.Gait is abnormal with slight limp. Patient is able to walk independently but feels more confident walking with front wheeled walker. About 5 lag from full extension. Patient is able to flex up to 95 today on exam. No tenderness to palpation. Normal sensory examination to light touch. 4+/5 strength on resistance. Imaging: X-ray to the right knee on 07/31/2017 showing no signs of lucency. Femoral and tibial prosthesis intact and well aligned. Slight medial angulation of patella polyethylene prosthesis.No signs of any acute injury. Allergies Coded Allergies: lisinopril (Unverified Allergy, Unknown, SWELLING RASH, 07/18/17) Assessment/Plan Problems: (1) Status post right knee replacement * Continue with aspirin 325 mg until 6 weeks status post surgery. * Continue with outpatient physical therapy. At home exercises also discussed with patient today. * Patient was advised to gradually wean off of front wheeled walker to the point where she can ambulate independently. * Pain medication as needed especially 30 minutes prior to physical therapy so that she can apply full effort while performing sessions. * Follow-up 6 weeks status post surgery for repeat evaluation. Dr. Sheibani-Rad was present for examination today. Medications Home Meds Reported Medications Diclofenac Sodium* (Diclofenac Sodium*) 75 Mg Tablet., 75 MG PO BID, #60 TAB 07/18/17 Tizanidine Hcl* (Tizanidine Hcl*) 4 Mg Tablet, 4 MG PO BID Y for SPASTICITY, TAB 07/18/17 Hydrochlorothiazide* (Hydrochlorothiazide*) 25 Mg Tab, 25 MG PO DAILY, #30 TAB 07/18/17 Calcium Carbonate* (Calcium Carbonate*) 600 MG Ca Tab, 1296 MG PO BID, TAB 07/18/17 Acetaminophen with Codeine (Acetaminophen-Cod #3 Tablet) 1 Each Tablet, 1-2 TAB PO Q6H Y for PAIN, #7 TAB 07/18/17 Omeprazole* (Omeprazole*) 20 Mg Capsule., 20 MG PO DAILY, #30 CAP 07/18/17 CON TRINH PA-C Jul 31, 2017 10:39
--- NOTE | 2017-08-01 09:13 | RADRPT ---
PROCEDURE: Right knee x-ray CLINICAL INDICATION: Right knee pain TECHNIQUE: AP, lateral and axial views of the knee were obtained with the patient weight bearing. COMPARISON: 07/18/2017 FINDINGS: There is normal mineralization. A total knee arthroplasty is again seen. The prosthesis appears to be anatomically aligned and well seated. There is a circular radiopaque structure along the posterior mid patella. A small to moderate joint effusion is again seen. There are no significant degenerative changes. There is no significant soft tissue swelling. IMPRESSION: 1. Stable total knee arthroplasty. 2. Small to moderate joint effusion. RPTAT:AAJJ Physician Cordell Date Time Electronically viewed and signed by Physician Cordell on 08/01/2017 09:13 ISIS/
== END | disposition home or self-care (01) ==
LOC: HKI 10:26
PROVIDERS: ATTEND Orthopaedic Surgery Adult Reconstructive Orthopaedic Surgery
DX: Z09 Encounter for follow-up examination after completed treatment for conditions other than malignant neoplasm (principal); Z96.651 Presence of right artificial knee joint

== ENCOUNTER → 2017-08-29 | Outpatient (CLI) | END | disposition home or self-care (01) ==

== ENCOUNTER → 2018-03-06 | Outpatient (CLI) | END | disposition home or self-care (01) ==